=== PATIENT | male | born 1940 | race Caucasian/White ===

== ENCOUNTER → 2017-12-13 | Outpatient (CLI) | payer MEDICARE ==
[~2017-12-13] MED LIST: AMLODIPINE BESY1 TAB PO; ASPI-COR81 M1 PO; LISINOPRIL20 MG PO; PRAVASTATIN SOD80 MG PO
== END | disposition home or self-care (01) ==
LOC: CT 14:00 → LAB 14:01 → CT 12-14 17:00
DX: M47.897 Other spondylosis, lumbosacral region (principal); M47.896 Other spondylosis, lumbar region; N28.89 Other specified disorders of kidney and ureter; R30.0 Dysuria; R63.4 Abnormal weight loss